=== PATIENT | male | born 1985 | race African-American/Black ===

== ENCOUNTER 2017-01-28 21:36 | Emergency (ER) | payer OTHER ==
[~2017-01-28] VITALS: Ht 172.7 cm; Wt 145.4 kg
[2017-01-28 21:42] VITALS: BP 154/103; PULSE 106; RESP 22; O2SAT 99
[2017-01-28 22:12] VITALS: BP 156/92; PULSE 83; RESP 14; O2SAT 100
[2017-01-28 22:22] LABS: BASOPHILS % (AUTO) 0.2 % (0-3); EOSINOPHILS % (AUTO) 0.8 % (0-5); MONOCYTES % (AUTO) 6.3 % (4-12); Mean Corpuscular Hemoglobin 30.3 pg (27.0-35.0); NEUTROPHILS % (AUTO) 50.1 % (40-74); Platelet Count 293 bil/L (150-400)
--- NOTE | 2017-01-28 22:37 | ED.REPORT ---
HPI-Chest Pain Under 40 Date of Service Jan 28, 2017 ED Provider: Tan Aguirre MD History of Present Illness: Maged Hale is a 31 year old obese, formerly super obese man with a history of anxiety with panic attacks who presents with a 1-2 day history of MEJÍA with associated throbbing in his neck and waxing waning "shakiness". He states that it has been a few years since he had a panic attack, but that this feeling is different than prior panic attacks that he has had. He does not have a family history of early cardiac , but his father does have CAD with concurrent DM2. He further relates that since losing 100+ pounds over the past 2 years he has been experiencing occasional palpitations with exertion, this have been worked up in the past with ECHO and Holter monitoring which failed to yield any concerning findings. Nursing Notes Stated Complaint: SHAKY, HOT FLASHS Chief Complaint: General Complaint Nursing Notes Reviewed: Yes Allergies: Coded Allergies: No Known Allergies (Unverified , 01/28/17) General Time Seen by MD: 22:20 Chief Complaint Shortness of breath Hx Obtained From: Patient Onset Occurred: 2 days ago Symptom Duration: Waxes and wanes Severity: Current: No pain currently Severity: Maximum: Mild Recent Healthcare: Recent doctor visit Similar Sx Previous: No Past Medical History Past Medical History Anxiety with panic attacks Review of Systems Respiratory: Reports: Shortness of breath Cardiovascular: Reports: Dyspnea on exertion, Palpitations Neurologic: Reports: Dizziness, Shaking Psychiatric: Reports: Anxiety Complete sys rev & neg: except as marked. Physical Exam Physical Exam Notes: Gen: A/O x3 pleasant cooperative man in mild acute ditress Neck: Large bull neck, full ROM, no tenderness to palpation HEENT: PERRL, EOMI, no scleral icterus, no conjunctival pallor CV: Tachycardia with rate approx 100, regular rhythm, no murmurs rubs or gallops Abdomen: Obese, soft, non tender, no organomegally Extr: No cyanosis clubbing or edema, firm cyst on dorsal distal radius apparently there for years Neuro: CN 2-12 grossly intact, no focal neurologic deficit. Initial Vital Signs Vital Signs (First) Date Time Temp Pulse Resp B/P Pulse Ox O2 Delivery O2 Flow Rate FiO2 01/28/17 21:42 36.5 106 22 154/103 99 Room Air Initial VS: Reviewed Interpretation & Diagnostics Lab Results Interpretation Result Diagram: 01/28/17220301/28/17 220 Test 01/28/17 22:04 01/28/17 22:56 01/28/17 23:18 White Blood Count 14.2th/mm3 (3.8-10.1) Red Blood Count 5.35mil/mm3 (4.40-5.80) Hemoglobin 16.2g/dL (13.8-17.2) Hematocrit 47.1% (41.0-50.0) Mean Corpuscular Volume 88.0fL (81-100) Mean Corpuscular Hemoglobin 30.3pg (27.0-35.0) Mean Corpuscular Hemoglobin Concent 34.4% (32.0-37.0) Red Cell Distribution Width 13.5% (12.3-15.4) Platelet Count 293bil/L (150-400) Neutrophils (%) (Auto) 50.1% (40-74) Lymphocytes (%) (Auto) 42.3% (14-46) Monocytes (%) (Auto) 6.3% (4-12) Eosinophils (%) (Auto) 0.8% (0-5) Basophils (%) (Auto) 0.2% (0-3) Sodium Level 137mEq/L (134-144) Potassium Level 3.6mEq/L (3.5-5.2) Chloride Level 98mEq/L (97-108) Carbon Dioxide Level 20mmol/L (18-29) Blood Urea Nitrogen 10mg/dL (6-20) Creatinine 0.77mg/dL (0.76-1.27) Estimat Glomerular Filtration Rate 124mL/min (>59) Glucose Level 117mg/dL (60-99) Calcium Level 9.3mg/dL (8.5-10.1) Total Bilirubin 0.5mg/dL (0.0-1.2) Aspartate Amino Transf (AST/SGOT) 19U/L (0-50) Alanine Aminotransferase (ALT/SGPT) 23U/L (0-44) Alkaline Phosphatase 61U/L (25-150) Total Protein 7.7g/dL (6.4-8.4) Albumin 4.5g/dL (3.4-5.0) Thyroid Stimulating Hormone (TSH) 1.840uIU/mL (0.450-4.500) Hold Bowden Top Tube Received (Received) D-Dimer < 0.5mg/L (<0.50) Troponin T 0.010ug/L (0.0-0.011) Re-Eval/Medical Decision Med Decision/Clinical Course Patient with a history of broadly similar symptoms with anxiety and panic attacks in the past with recent benign cardiovascular workup. Serial Trop negative x2, D-Dimer negative, ECG sinus Tachycardia, CXR unremarkable. Patient likely suffering from relapse of his previous anxiety symptoms. Discharged home with instructions to establish care at the [facility] with myself or other available provider. Counseled Regarding: Diagnosis, Lab results, Need for follow-up, When/why to return to ED Discharge & Departure Shift Change Sign-Out Patient Care Transferred: No Discussed Complaint(s): Yes Laboratory Evaluation: Lab evaluation discussed Imaging Studies: Imaging discussed Response to Therapy: Improved Primary Impression: Anxiety Additional Impression: Non-cardiac chest pain Disposition: Home Discharge Condition All VS Reviewed: Yes Condition: Stable Patient Instructions: Generalized Anxiety Disorder (ED) Additional Instructions: Based upon our evaluation it does not appear that you have any imminently dangerous process happening in your heart and lungs. Most likely you have suffered from a physical manifestation of your underlying anxiety. If you begin to experience more severe chest pain, increased shortness of breath with minimal exertion, associated sweating, or you begin coughing up blood please return to the ER for further evaluation. Please establish care with myself of another provider at the [facility]. Referrals: Elio Kiran DO Attending Statement As attending of record for this patient, I conducted an independent history and physical examination, and I concur with the resident documentation as above, and as amended. copies to: Elio Kiran David E DO Jan 28, 2017 22:37 Tan Aguirre MD Jan 29, 2017 06:57
[2017-01-28 22:42] LABS: TROPONIN T 0.01 ug/L (0.0-0.011)
[2017-01-29 01:41] VITALS: BP 125/75; PULSE 84; RESP 18; O2SAT 96
--- NOTE | 2017-01-29 08:09 | DRSVH ---
PROCEDURE: X-RAY CHEST ONE VIEW ([id number]) INDICATIONS: shortness of breath TECHNIQUE: One view of the chest was acquired. COMPARISON: [facility], , CHEST 2 VIEW, 11/11/2016, 20:06. FINDINGS: Surgical changes and devices: None. Lungs and pleura: No pleural effusions or pneumothorax. Lungs are clear. Mediastinum: Mediastinal contours appear normal. Heart size is normal. Bones and chest wall: No suspicious bony lesions. Overlying soft tissues appear unremarkable. IMPRESSION: No acute cardiopulmonary findings. Dictated by: Nicky Morley M.D. on 01/29/2017 at 8:08 Approved by: Nicky Morley M.D. on 01/29/2017 at 8:08
== END 2017-01-29 01:43 | disposition home or self-care (01) ==
LOC: SED 21:36
DX: F41.9 Anxiety disorder, unspecified (principal); R07.89 Other chest pain

== ENCOUNTER 2017-04-12 13:14 | Emergency (ER) | payer OTHER ==
[~2017-04-12] VITALS: Ht 170.2 cm; Wt 145.0 kg
[2017-04-12 13:16] VITALS: BP 141/88; RESP 16; O2SAT 97
--- NOTE | 2017-04-12 13:21 | ED.REPORT ---
HPI-General Illness Date of Service April 12, 2017 ED Provider: Patient is a 31 year old male who presents to [facility] ED complaining of mouth sores. He reports having a cold sore on his lower lip 2 weeks ago that began to heal when the second cold sore appeared in addition to a few white painful round lesions inside his mouth. He denies chills, fever, upper respiratory symptoms, nausea, vomiting, diarrhea. He denies recent illness, travels or sick contacts. Patient reports herpes outbreaks on his lips before. He never has been on any antiviral medication for that. Nursing Notes Stated Complaint: MOUTH SORES Chief Complaint: ENT & Mouth Nursing Notes Reviewed: Yes Allergies: Coded Allergies: No Known Allergies (Unverified , 04/12/17) Scheduled Acyclovir (Acyclovir) 200 Mg Capsule 200 MG PO 5XD Clobetasol Propionate/Emoll (Clobetasol Emollient 0.05% Crm) 15 Gm Cream..g. 1 APPL TOP BID General Time Seen by MD: 13:20 Chief Complaint Other (sores on the lips and inside the mouth) Hx Obtained From: Patient Onset Occurred: More than a week ago... (2 weeks) Symptom Duration: Since onset Severity: Current: Mild Recent Healthcare: No recent doctor visit Past Medical History Past Medical History Anxiety with panic attacks Smoking History Former Smoker Social History Alcohol Use: "Social" Drug Use: Denies drug use Other Social History: Local resident Ambulatory Status Independent Review of Systems Full Review of Systems Constitutional: Denies: Chills, Fatigue, Fever, Malaise, Weakness - generalized Respiratory: Denies: Dyspnea on exertion, Shortness of breath, Wheezing Cardiovascular: Denies: Chest pain, Edema GI: Denies: Abdominal pain, Diarrhea, Nausea, Vomiting Male: Denies Dysuria, Denies Penile discharge, Denies Penile lesion, Denies Urinary frequency Musculoskeletal: Denies: Back pain, Extremity pain, Extremity swelling Neurologic: Denies: Focal weakness Psychiatric: Denies: Anxiety Physical Exam Vital Signs Vital Signs Date Time Temp Pulse Resp B/P Pulse Ox O2 Delivery O2 Flow Rate FiO2 04/12/17 13:16 36.5 92 16 141/88 97 Room Air Initial VS: Reviewed, Vital signs normal General/Constitutional: Awake, Alert, No acute distress, Well appearing, Well developed, Well hydrated, Well nourished, Cooperative, Not toxic appearing Head / Eyes: Atraumatic, Normocephalic, PERRL, EOMI, No periorbital redness, Conjunctiva NL Mouth: Positive: Lip swelling present (large sore on the left lower lip, dry and one smaller, round vesicle forming on the lower right lip), Mucous membranes dry Dental / Gums: Positive: Gum ulcers present (two round white flat lesions on the right ) Neck: Supple, Full range of motion, No adenopathy, No swelling, Non-tender Respiratory / Chest: Breath sounds NL, Breath sounds = bilat, No respiratory distress, No wheezing Cardiovascular: Heart rate NL, Regular rhythm, Heart sounds NL Abdomen: Atraumatic, Soft, Non-tender Lower Extremity / Pelvis / MS: No swelling Re-Eval/Medical Decision Med Decision/Clinical Course Patient is a 31 year old male with history of prior herpes simples outbreaks presented to ED with cold sore outbreak on his lower lip and a few canker sores inside his mouth. Diagnoses and treatment have been discussed with the patient. He was sent home with a prescription for an Acyclovir, 200 mg five times a day for 5 days and topical Clobetasol. Patient discharged home in a stable condition. He will follow up with a residency clinic as needed. Counseled Regarding: Diagnosis, Need for follow-up Discharge & Departure Shift Change Sign-Out Response to Therapy: Unchanged Primary Impression: Recurrent cold sores Additional Impression: Canker sores oral Disposition: Home Discharge Condition Condition: Stable Additional Instructions: Thank you for seeking care at Emergency Department today. You have an outbreak of cold sores (herpes simplex virus) and canker sores (Aphthous ulcers). You are given a prescription for an antiviral medication, Acyclovir. Please take 200 mg five times a day for 5 days. You are also given topical corticosteroid, Clobetasol. Please apply to affected area twice daily for symptomatic relief. We also recommend to take Ibuprofen or Tylenol for pain relief as needed. There is some evidence of benefit from Vitamin B-12, 100 micrograms daily to prevent future occurrence of canker sores. Please call Residency Clinic at and schedule an appointment to establish care with a new health care provider. Thank you for letting us partake in your care today. Referrals: NOPCP (PCP) EDSupervising Provider for APC: Darin Gauthier MD Attending Statement Attending attestation: I saw this patient in conjunction with the above named resident. I was present for all sylvester portions of the history taking and physical examination. I agree with the workup, evaluation, treatment and disposition. Darin Pandya MD, MD April 12, 2017 13:20 Elba Lei DO April 12, 2017 13:52
[2017-04-12] MEDS ORDERED: ACYC200C PO (13:55)
[2017-04-12] MEDS ORDERED: CLOB15CR3 TOP (13:58)
== END 2017-04-12 14:15 | disposition home or self-care (01) ==
LOC: SED 13:14
DX: K12.0 Recurrent oral aphthae (principal); Z87.891 Personal history of nicotine dependence

== ENCOUNTER 2017-04-15 19:52 | Emergency (ER) | payer OTHER ==
[~2017-04-15] VITALS: Ht 172.7 cm; Wt 145.0 kg
[~2017-04-15 19:52] MED LIST: ACYC200C PO; CLOB15CR3 TOP
[2017-04-15 19:54] VITALS: BP 147/96; PULSE 99; RESP 20; O2SAT 100
--- NOTE | 2017-04-15 20:10 | ED.REPORT ---
HPI-Dental/Mouth Prob Date of Service April 15, 2017 ED Provider: Darin Gauthier MD Pt is a 31 y/o male presenting to the ED c/o mouth sores onset about 4 days ago. He was seen here on April 12 complaining of mouth sores, cold sores, and painful lesions inside mouth. His presentation thought likely due to HSV and he was started on acyclovir and topical steroids and referred to the residency clinic. He is also experiencing sores in the genital area. Since then, the sores have been worsening and is causing him trouble eating, drinking, and swallowing, secondary to pain. He has had similar sores previously externally maybe 3x per year but never internally. He noticed the genital sores while taking a shower yesterday. He has no history of STIs and has only been with his for the past 2 years who he reports does not have sores. He has been taking the prescribed medications as directed. He has never been treated with medications like this before. The patient has no PCP but has an appointment to meet one on April 20. Nursing Notes Stated Complaint: MOUTH Chief Complaint: General Complaint Nursing Notes Reviewed: Yes Allergies: Coded Allergies: No Known Allergies (Unverified , 04/12/17) Scheduled Acyclovir (Acyclovir) 200 Mg Capsule 200 MG PO 5XD Clobetasol Propionate/Emoll (Clobetasol Emollient 0.05% Crm) 15 Gm Cream..g. 1 APPL TOP BID General Time Seen by MD: 20:02 Chief Complaint Cold sore Hx Obtained From: Patient Arrived By: Walk-in Onset Occurred: 4 days ago Symptom Duration: Since onset Quality: Painful Severity: Current: Moderate Severity: Maximum: Moderate Recent Healthcare: Recent doctor visit, Previous diagnosis Similar Sx Previous: Yes Past Medical History Past Medical History Anxiety with panic attacks Recurrent mouth cold sores Past Surgical History None reported Smoking History Former Smoker Social History Alcohol Use: "Social" Drug Use: Denies drug use Other Social History: Local resident Ambulatory Status Independent Review of Systems Constitutional: Denies: Chills, Fever Ears / Nose / Throat: Reports: Mouth pain Respiratory: Denies: Non-productive cough, Shortness of breath Complete sys rev & neg: except as marked. Skin: Reports Rash, Reports Swelling Physical Exam Initial Vital Signs Vital Signs (First) Date Time Temp Pulse Resp B/P Pulse Ox O2 Delivery O2 Flow Rate FiO2 04/15/17 19:54 36.7 99 20 147/96 100 Room Air Initial VS: Reviewed, Vital signs normal Head / Eyes: Atraumatic, Normocephalic, PERRL Respiratory: Breath sounds normal, Clear to auscultation, No respiratory distress Cardiovascular: Regular rate & rhythm, Heart sounds normal, Intact distal pulses Abdomen / GI: Soft, Non-tender, No guarding, No rebound, No distention Extremities: Vascular intact, Neuro intact, No swelling, No tenderness Skin: Warm, Dry, No cyanosis Neurologic: Alert, Oriented, Nonfocal Psychiatric: Mood/affect normal, Behavior normal, Normal thought content ENT: Atraumatic, Airway patent, Mucous membranes moist, Pharynx NL, No pooling of secretions, No trismus Dried crusted superficial ulcerated regions about lips in corner of mouth. Scattered aphthous ulcers about buccal mucosa with whitish base. Neck: Atraumatic, Supple, No meningismus, Full range of motion General/Constitutional: Awake, Alert, No acute distress, Well appearing, Cooperative, Not toxic appearing Male Genitourinary: Atraumatic, No penile discharge, No meatal blood, Testes NL Several superficial ulcerated erythematous regions about scrotum 1 lesion about left glans penis area. Interpretation & Diagnostics Lab Results Interpretation Test 04/15/17 20:49 Re-Eval/Medical Decision Med Decision/Clinical Course Pt is a 31 y/o male presenting to the ED c/o mouth sores onset about 4 days ago. He was seen here on April 12 complaining of mouth sores, cold sores, and painful lesions inside mouth. His presentation thought likely due to HSV and he was started on acyclovir and topical steroids and referred to the residency clinic. He is also now experiencing sores in the genital area. Since then, the sores have been worsening and is causing him trouble eating, drinking, and swallowing, secondary to pain. He has had similar sores previously about his lips never involving the inside of his mouth. He noticed the genital sores while taking a shower yesterday. He has no history of STIs and has only been with his for the past 2 years who he reports does not have sores. He has been taking the prescribed medications as directed but admits that he just felt the acyclovir yesterday. He has never been treated with medications like this before. The patient has no PCP but has an appointment to meet one on April 20. Here in the emergency department the patient is afebrile still vital signs and examination as above. Examination of the oral and genital lesions are completely consistent with HSV. I have deroofed one of the lesions and swabbed and sent specimen to lab for viral testing. While the patient has not had much if any improvement in his symptoms he admits that he only filled his acyclovir prescription yesterday and I would not expect him to be experiencing much improvement over such a short period of time. He has no history of immunocompromise or sexual transmitted infections though I do believe that he would benefit from additional testing for HIV and other associated sexually transmitted infections. I have advised him to do this through his primary care physician. At this time I see no evidence of Liang-Bobby syndrome, TEN or other significant complication related to HSV. He is advised to continue his acyclovir and has been provided with Magic mouthwash to help with the discomfort related to his oral lesions. He was also advised to fact precautions related to the sexual transmissible nature of his infection. He is provided with lidocaine gel as well as additional topical treatments to help with his symptoms. Prior to discharge follow-up and return precautions were reviewed in detail with the patient who verbalized understanding and agreement with the plan. The patient was discharged in stable condition. Re-Evaluation/Progress : Time of Eval: 20:23 Re-Evaluation/Progress Note: Pt rechecked. Informed pt of plan for treatment. Pt understands and agrees with plan for treatment. F/U instructions and RTER warnings given. All questions addressed. Counseled Regarding: Diagnosis, Need for follow-up, When/why to return to ED Discharge & Departure Primary Impression: HSV (herpes simplex virus) infection Additional Impressions: Oral herpes Genital herpes Herpes simplex infection site: penis Qualified Code: A60.01 - Herpesviral infection of penis Recurrent oral ulcers Disposition: Home Discharge Condition All VS Reviewed: Yes Condition: Stable Patient Instructions: Genital Herpes Simplex (ED), Oral Herpes Simplex Virus Infections (ED) Additional Instructions: Thank you for seeking care at the emergency room. It is difficult for us to make definitive diagnoses in the ED but we believe that you are experiencing lesions caused by herpes simplex virus. Continue the antiviral as prescribed, use magic mouthwash as prescribed for comfort, and continue to use the topical steroids as prescribed. Herpes is sexually transmissible and I recommend using a condom for sex. You should follow-up with your primary doctor on April 20 as planned. You should return to the ED immediately if you develop fevers, vomiting, shortness of breath, or any other concerning signs or symptoms. Thank you for letting us partake in your care today. Referrals: [facility] Scribe Attestation Portions of this note were transcribed by Vinicio Hannon. I, Dr. Mendoza personally performed the history, physical exam and medical decision-making; I reviewed and confirmed the accuracy of the information in the transcribed note. Signed by Brendon Peterson, 04/15/172029 Darin Gauthier MD April 15, 2017 20:10 VINICIO HANNON April 15, 2017 20:16
[2017-04-15] MEDS ORDERED: Diphen-Lido-Mylanta 1:1:1 Susp 120 mL PO PRN (20:35)
[2017-04-15] MEDS ORDERED: Diphen-Lido-Mylanta 1:1:1 Susp 15 mL Syringe PO ONE (20:35)
[2017-04-15] MEDS ORDERED: Diphen-Lido-Mylanta 1:1:1 Susp 120 mL PO SCH (20:45)
[2017-04-15] MEDS ORDERED: Lidocaine 2% 5 mL Topical Jelly TOPICAL ONE (21:00)
[2017-04-15] MEDS ORDERED: Lidocaine 2% 5 mL Topical Jelly TOPICAL SCH (21:15)
[2017-04-15 21:29] VITALS: BP 128/85; PULSE 80; RESP 20; O2SAT 98
== END 2017-04-15 21:31 | disposition home or self-care (01) ==
LOC: SED 19:52
DX: B00.9 Herpesviral infection, unspecified (principal); A60.01 Herpesviral infection of penis; K12.1 Other forms of stomatitis; Z87.891 Personal history of nicotine dependence

== ENCOUNTER 2017-05-15 16:13 | Emergency (ER) | payer OTHER ==
[~2017-05-15] VITALS: Ht 172.7 cm; Wt 139.1 kg
[2017-05-15 16:36] VITALS: BP 123/55; PULSE 71; RESP 15; O2SAT 99
[2017-05-15 17:09] LABS: BASOPHILS % (AUTO) 0.2 % (0-3); EOSINOPHILS % (AUTO) 1.5 % (0-5); MONOCYTES % (AUTO) 6.2 % (4-12); Mean Corpuscular Hemoglobin 30.4 pg (27.0-35.0); Platelet Count 294 bil/L (150-400)
--- NOTE | 2017-05-15 17:10 | DRSVH ---
PROCEDURE: X-RAY CHEST ONE VIEW, PORTABLE ([id number]) INDICATIONS: PALPITATIONS TECHNIQUE: One view of the chest was acquired. COMPARISON: [facility], CR, XR CHEST 1VW, 01/28/2017, 23:04. FINDINGS: Surgical changes and devices: None. Lungs and pleura: No pleural effusions or pneumothorax. Lungs are clear. Mediastinum: Mediastinal contours appear normal. Heart size is normal. Bones and chest wall: No suspicious bony lesions. Overlying soft tissues appear unremarkable. IMPRESSION: No acute cardiopulmonary disease. Dictated by: Mukesh Brock M.D. on 05/15/2017 at 17:07 Approved by: Mukesh Brock M.D. on 05/15/2017 at 17:08
[2017-05-15 17:27] LABS: TROPONIN T < 0.010 ug/L (0.0-0.011)
[2017-05-15 17:37] LABS: Magnesium 1.6 mg/dL (1.6-2.6)
--- NOTE | 2017-05-15 17:53 | ED.REPORT ---
HPI-Chest Pain Under 40 Date of Service May 15, 2017 ED Provider: Colton Taylor PA-C Maged is a otherwise healthy 31-year-old male presented with a chief complaint heart palpitations. Patient reports a three-year history of heart palpitations , worsening over that time. He noticed more than usual this morning and decided to come in to get checked out. Admits a history of GERD, occasional dizziness, remote history of smoking. Admits a nonfatal IN in his father while in his 40s. Denies chest pain, diaphoresis, shortness of breath, syncope/ presyncope, abdominal pain, melena, hematochezia. Denies history of heart disease, diabetes, hypertension, stimulant abuse. Denies unilateral leg swelling, hemoptysis, history of PE/DVT, hormone use. Nursing Notes Stated Complaint: HEART PALPITATIONS & PAIN Chief Complaint: Chest Pain Nursing Notes Reviewed: Yes Allergies: Coded Allergies: No Known Allergies (Unverified , 05/15/17) General Time Seen by MD: 17:50 Chief Complaint Other (palpitation) Past Medical History Past Medical History Anxiety with panic attacks Recurrent mouth cold sores Past Surgical History None reported Smoking History Former Smoker Social History Alcohol Use: "Social" Drug Use: Denies drug use Other Social History: Local resident Ambulatory Status Independent Review of Systems Negative unless stated otherwise in history of present illness Physical Exam General: Well appearing, well developed, obese, no acute distress. Head: Atraumatic, normocephalic. Eyes: No scleral icterus or injection. No discharge. Vision grossly intact. ENT: Voice clear, hearing grossly intact. Respiratory: Regular rate and rhythm. Breath sounds present, clear to auscultation and equal bilaterally. No respiratory distress. No increased work of breathing, speaks in complete sentences. Cardiovascular: Irregular rate and rhythm, without murmur, gallop or rub. No pedal edema. PVC noted on monitor as the patient mentioned that he felt a palpitation Skin: Warm and dry. Neurological: Grossly nonfocal. Psychological: Alert and oriented. Speech appropriate, linear and logical. Behavior appropriate. Initial Vital Signs Vital Signs (First) Date Time Temp Pulse Resp B/P Pulse Ox O2 Delivery O2 Flow Rate FiO2 05/15/17 16:36 36.8 71 15 123/55 99 05/15/17 18:04 Room Air Normal Interpretation & Diagnostics Lab Results Interpretation Result Diagram: 05/15/173 05/15/17 1653 Test 05/15/17 16:53 White Blood Count 12.5th/mm3 (3.8-10.1) Red Blood Count 5.07mil/mm3 (4.40-5.80) Hemoglobin 15.4g/dL (13.8-17.2) Hematocrit 45.1% (41.0-50.0) Mean Corpuscular Volume 89.0fL (81-100) Mean Corpuscular Hemoglobin 30.4pg (27.0-35.0) Mean Corpuscular Hemoglobin Concent 34.1% (32.0-37.0) Red Cell Distribution Width 13.5% (12.3-15.4) Platelet Count 294bil/L (150-400) Neutrophils (%) (Auto) 66.0% (40-74) Lymphocytes (%) (Auto) 25.8% (14-46) Monocytes (%) (Auto) 6.2% (4-12) Eosinophils (%) (Auto) 1.5% (0-5) Basophils (%) (Auto) 0.2% (0-3) Sodium Level 139mEq/L (134-144) Potassium Level 4.1mEq/L (3.5-5.2) Chloride Level 104mEq/L (97-108) Carbon Dioxide Level 20mmol/L (18-29) Blood Urea Nitrogen 11mg/dL (6-20) Creatinine 0.65mg/dL (0.76-1.27) Estimat Glomerular Filtration Rate 150mL/min (>59) Glucose Level 100mg/dL (60-99) Calcium Level 9.7mg/dL (8.5-10.1) Magnesium Level 1.6mg/dL (1.6-2.6) Total Bilirubin 0.2mg/dL (0.0-1.2) Aspartate Amino Transf (AST/SGOT) 12U/L (0-50) Alanine Aminotransferase (ALT/SGPT) 21U/L (0-44) Alkaline Phosphatase 62U/L (25-150) Troponin T < 0.010ug/L (0.0-0.011) Total Protein 7.3g/dL (6.4-8.4) Albumin 4.2g/dL (3.4-5.0) Hold Bowden Top Tube Received (Received) ECG Interpretation Interpreted by: ED physician (Dr. Mendoza) Normal ECG Interpretation: Normal rate, Normal sinus rhythm, No acute ischemic changes, Normal QRS, Normal axis, Normal intervals, Adequate tracing X-Ray Chest Interpretation Chest Xray Interpretation: PROCEDURE: X-RAY CHEST ONE VIEW, PORTABLE ([id number]) INDICATIONS: PALPITATIONS IMPRESSION: No acute cardiopulmonary disease. Re-Eval/Medical Decision Med Decision/Clinical Course 31-year-old male with a history of anxiety complaints of palpitations for the last 3 years, steadily worsening since onset. Denies chest pain, diaphoresis or shortness of breath. Admits history of heartburn, denies melena, hematochezia. Admits history of smoking now discontinued, denies history of CAD , DM, HTN, stimulant abuse. Examination reveals a well-appearing obese male reclining on the gurney. An irregular heart rate is noted both by auscultation and palpation. Lungs clear and equal bilaterally. PVC is noted on the monitor as the patient complains of a palpitation. CBC reveals a mild leukocytosis, CMP is unremarkable, troponin is normal. EKG is normal and chest x-ray is normal. PERC negative. I discussed this case with Dr. Villarreal. At this point I believe these are symptomatic PVCs, and less concerned about IN, Brugada, A. fib, pneumonia, hemothorax, pneumothorax. The patient is stable safely discharged to home. Provided primary care follow-up referral, emergency return precautions. Advised against alcohol, stimulants. Patient verbalizes understanding of and consent to the plan. Discharge & Departure Primary Impression: Symptomatic PVCs Disposition: Home Discharge Condition All VS Reviewed: Yes Patient Instructions: Palpitations (ED) Additional Instructions: Evaluation for palpitations in the emergency department includes history, physical examination, blood work, EKG and chest x-ray all of which are reassuring that your symptoms are not caused by an immediately dangerous conditions such as a dangerous arrhythmia, heart attack, pneumonia, blood clot or collapsed lung. I believe he is stable and safe to go home. I will give you a referral to a primary care provider. Please contact them to establish care and further investigate the cause of these palpitations. In the meantime I recommend you abstain from alcohol or stimulants such as coffee or nicotine. These can aggravate your palpitations. Return to emergency department for new or worsening symptoms including chest pain, sweating, shortness of breath. Referrals: Jose Norris MD EDSupervising Provider for APC: Morgan Villarreal Seth PA-C May 15, 2017 17:53
[2017-05-15 18:04] VITALS: BP 127/66; PULSE 76; RESP 20; O2SAT 98
[2017-05-15 18:35] VITALS: BP 127/66; PULSE 76; RESP 20; O2SAT 98
== END 2017-05-15 18:36 | disposition home or self-care (01) ==
LOC: SED 16:13
DX: I49.3 Ventricular premature depolarization (principal); K21.9 Gastro-esophageal reflux disease without esophagitis; F41.9 Anxiety disorder, unspecified; Z87.891 Personal history of nicotine dependence